=== PATIENT | male | born 1965 | race Two or more races ===

== ENCOUNTER 2024-03-30 12:25 | Emergency (ER) | payer OTHER ==
[~2024-03-30] VITALS: Ht 170.2 cm; Wt 60.0 kg
[2024-03-30 12:36] VITALS: O2SAT 99
[2024-03-30 13:04] VITALS: BP 121/73; PULSE 73; RESP 11; TEMP 97.9
[2024-03-30] MEDS: SODIUM CHLORIDE 0.9% 500 ML IV ONE (13:05)
[2024-03-30 13:12] LABS: BASOPHILS % 0.5 % (0.0-2.0); EOSINOPHILS % 1.4 % (0.0-5.0); HEMATOCRIT. 44.8 % (42.0-52.0); HEMOGLOBIN. 15.1 g/dL (14.0-18.0); LYMPHOCYTES % 31.4 % (20.0-50.0); MEAN CORPUSCULAR HEMOGLOBIN 29.4 pg (28.0-32.0); MEAN CORPUSCULAR HGB CONC 33.6 g/dL (31.0-37.0); MEAN CORPUSCULAR VOLUME 87.5 fL (80.0-94.0); MEAN PLATELET VOLUME 6.9 fl (7.4-10.4); MONOCYTES % 7.9 % (2.0-8.0); NEUTROPHILS % 58.8 % (40.0-76.0); PLATELET 230 x1000/uL (130-400); RED BLOOD CELL COUNT 5.12 mill/uL (4.7-6.1); RED CELL DISTRIBUTION WIDTH 13.4 % (11.6-14.6); WHITE BLOOD COUNT 4.7 x1000/uL (4.5-11.0)
[2024-03-30 13:21] LABS: CHLORIDE 108 mEq/L (98-107); POTASSIUM 3.6 mEq/L (3.5-5.1); SODIUM 142 mEq/L (136-145)
[2024-03-30 13:22] LABS: CARBON DIOXIDE 25 mEq/L (21-32)
[2024-03-30 13:27] LABS: CREATININE 1.3 mg/dL (0.6-1.3); GLUCOSE 138 mg/dL (70-105)
[2024-03-30 13:28] LABS: UREA NITROGEN BLOOD 15 mg/dL (9-23)
[2024-03-30 13:29] LABS: TROPONIN I HIGH SENSITIVITY 4 ng/L (3.0-53)
[2024-03-30] MEDS: METHYLPREDNISOLONE SOD SUCC 125MG/2ML (ACT-O-VIAL) IV ONE (14:33)
[2024-03-30] MEDS: DIPHENHYDRAMINE 50MG/ML VIAL IV ONE (14:33)
[2024-03-30] MEDS: FAMOTIDINE 20MG/2ML VIAL IV ONE (14:34)
[2024-03-30 14:38] LABS: ETHANOL BLOOD < 10 mg/dL (<10)
[2024-03-30 15:22] LABS: TROPONIN I HIGH SENSITIVITY 7 ng/L (3.0-53)
[2024-03-30 15:23] LABS: ALANINE AMINOTRANSFERASE 14 IU/L (10-49); ALBUMIN 3.9 g/dL (3.2-4.8); ASPARTATE AMINOTRANSFERASE 26 IU/L (<34); BILIRUBIN DIRECT 0.1 mg/dL (<=3.0); BILIRUBIN TOTAL 0.3 mg/dL (0.1-1.0); PROTEIN TOTAL 6.3 g/dL (6.0-8.3)
[2024-03-30 16:04] LABS: CLARITY URINE CLEAR (CLEAR); COLOR URINE YELLOW (YELLOW); GLUCOSE URINE NEGATIVE (NEGATIVE); KETONES URINE NEGATIVE (NEGATIVE); LEUKOCYTE ESTERASE URINE TRACE (NEGATIVE); NITRITE URINE NEGATIVE (NEGATIVE); OCCULT BLOOD URINE NEGATIVE (NEGATIVE); PH URINE 6.5 (4.5-8.0); PROTEIN URINE NEGATIVE (NEGATIVE); SPECIFIC GRAVITY URINE 1.019 (1.005-1.030); UROBILINOGEN URINE 0.2 E.U./dL (0.2-1.0)
[2024-03-30 16:14] LABS: *AMPHETAMINES SCREEN URINE NEGATIVE (NEGATIVE)
[2024-03-30 16:15] LABS: *BARBITURATES SCREEN URINE NEGATIVE (NEGATIVE); *BENZODIAZEPINES SCREEN URINE NEGATIVE (NEGATIVE); *COCAINE SCREEN URINE NEGATIVE (NEGATIVE); CANNABINOID URINE SCREEN NEGATIVE (NEGATIVE); ECSTASY MDMA SCREEN URINE NEGATIVE (NEGATIVE); METHADONE URINE SCREEN NEGATIVE (NEGATIVE); OPIATES URINE SCREEN NEGATIVE (NEGATIVE); PHENCYCLIDINE URINE SCREEN NEGATIVE (NEGATIVE)
[2024-03-30 16:40] LABS: BACTERIA URINE TRACE; HYALINE CASTS URINE 0-5 /lpf; RBC URINE 0-2 /hpf (0-2); SQUAMOUS EPITHELIAL CELL URINE FEW /lpf (RARE/1+)
[2024-03-30] MEDS ORDERED: EPIN0.3P3 IM (16:43)
[2024-03-30] MEDS ORDERED: DIPH25CA83 MT (16:43)
== END 2024-03-30 14:19 | disposition home or self-care (01) ==
LOC: ER 12:25
DX: T78.40XA Allergy, unspecified, initial encounter (principal); R55 Syncope and collapse; F19.90 Other psychoactive substance use, unspecified, uncomplicated; Z88.6 Allergy status to analgesic agent; X58.XXXA Exposure to other specified factors, initial encounter
CPT/HCPCS: 80076; 80305; 80048; 81003; 80320; 83880; 83690; 83735; 85025; 85379; 85610; 85730; 84484; 36415; 71045; 93005; 96361; 96374; 96375; 99285; J1200; J3490; J2919; J7040; Z7610 ×2; G0480